=== PATIENT | male | born 2000 | race Caucasian/White ===

== ENCOUNTER 2018-03-23 19:41 | Emergency (ER) | payer OTHER ==
[~2018-03-23] VITALS: Ht 175.3 cm; Wt 68.0 kg
--- NOTE | 2018-03-23 19:45 | NUR ---
TO LOBBY , A/W BED, AMBULATORY, VSS, ERMD NOTED
[2018-03-23 19:48] VITALS: BP 134/69
--- NOTE | 2018-03-23 20:42 | NUR ---
PT WAITING IN LOBBY IN STABLE CONDITION
--- NOTE | 2018-03-23 21:05 | NUR ---
CALLED PT, NOT IN LOBBY OR OUTSIDE ER LOBBY
--- NOTE | 2018-03-23 21:17 | NUR ---
CALLED PT, NOT IN LOBBY OR OUTSIDE ER LOBBY
--- NOTE | 2018-03-23 21:18 | NUR ---
PATIENT LEFT WITHOUT BEING SEEN BY DR. REYNA. NO FURTHER CARE PROVIDED FOR PATIENT.
== END 2018-03-23 21:18 | disposition left against medical advice (07) ==
LOC: MED 19:41
DX: N48.89 Other specified disorders of penis (principal); Z53.21 Procedure and treatment not carried out due to patient leaving prior to being seen by health care provider

== ENCOUNTER 2018-03-24 16:47 | Emergency (ER) | payer OTHER ==
[~2018-03-24] VITALS: Ht 172.7 cm; Wt 68.0 kg
[2018-03-24 16:56] VITALS: BP 103/52
--- NOTE | 2018-03-24 17:00 | NUR ---
18/M BIB MOM C/O rlq pain radiating to rt groin, dysuria x 2 days. DENIES N/V/D; SKIN IS PINK/WARM/DRY; AAOX4 WITH EVEN AND STEADY GAIT; LUNGS CLEAR BL; HR EVEN AND REGULAR; PT DENIES ANY FEVER, CP, SOB, OR COUGH AT THIS TIME; PATIENT STATES PAIN OF 7/10 AT THIS TIME; VSS; PATIENT POSITIONED FOR COMFORT; HOB ELEVATED; BEDRAILS UP X2; BED DOWN. ER MD MADE AWARE OF PT STATUS.
--- NOTE | 2018-03-24 17:47 | NUR ---
US AT BEDSIDE.
[2018-03-24 18:15] VITALS: BP 105/49
--- NOTE | 2018-03-24 18:15 | NUR ---
Patient discharged with v/s stable. Written and verbal after care instructions given and explained. Patient verbalized understanding. Ambulatory with steady gait. All questions addressed prior to discharge. Advised to follow up with PMD.
== END 2018-03-24 18:15 | disposition home or self-care (01) ==
LOC: MED 16:47
DX: R10.31 Right lower quadrant pain (principal); F12.10 Cannabis abuse, uncomplicated
CPT/HCPCS: 76705; 81002; 99284; Q0092

== ENCOUNTER 2018-05-29 13:08 | Emergency (ER) | payer OTHER ==
[~2018-05-29] VITALS: Ht 172.7 cm; Wt 68.0 kg
[2018-05-29 13:25] VITALS: BP 94/41
[2018-05-29 15:20] LABS: APPEARANCE,URINE CLEAR (CLEAR); BILIRUBIN,URINE NEGATIVE (NEGATIVE); BLOOD, URINE NEGATIVE (NEGATIVE); COLOR,URINE YELLOW (YELLOW); LEUKOCYTE ESTERASE ,URINE NEGATIVE (NEGATIVE); NITRITE, URINE NEGATIVE (NEGATIVE); UGLUCOSE NEGATIVE (NEGATIVE)
[2018-05-29 16:11] VITALS: BP 101/56
[2018-05-31 06:14] LABS: CHLAMYDIA TRACHOMATIS AMP DNA Negative (Negative)
== END 2018-05-29 16:11 | disposition home or self-care (01) ==
LOC: MED 13:08
DX: N34.2 Other urethritis (principal)
CPT/HCPCS: 36415; 81003; 87491; 99283

== ENCOUNTER 2018-07-22 12:10 | Emergency (ER) | payer OTHER ==
[~2018-07-22] VITALS: Ht 172.7 cm; Wt 68.5 kg
[2018-07-22 12:19] VITALS: BP 83/45
[2018-07-22] MEDS ORDERED: ACETAMINOPHEN EXTRA STRENGTH 500 MG TAB PO ONE (13:40)
[2018-07-22] MEDS ORDERED: ONDANSETRON 4 MG ODT PO ONE (14:45)
[2018-07-22 14:59] VITALS: BP 109/59
== END 2018-07-22 14:59 | disposition home or self-care (01) ==
LOC: MED 12:10
DX: B34.9 Viral infection, unspecified (principal); K21.9 Gastro-esophageal reflux disease without esophagitis
CPT/HCPCS: 36415; 87804; 99283; Q0162

== ENCOUNTER 2018-12-15 06:07 | Emergency (ER) | payer OTHER ==
[~2018-12-15] VITALS: Ht 172.7 cm; Wt 70.3 kg
[2018-12-15 06:12] VITALS: BP 122/76
--- NOTE | 2018-12-15 06:12 | NUR ---
TO BED # 03 AMBULATORY
--- NOTE | 2018-12-15 06:20 | NUR ---
PT BIB MOTHER C/O UPPER ABD PAIN. PT STATES SUDDEN ONSET OF EPIGASTRIC PAIN X2 HOURS. PT STATES NAUSEA AND VOMITING 3-4 TIMES IN THE LAST HOURS; PT REPORTED THIN, CLEAR, BROWNISH EMESIS. +TENDERNESS TO UPPER MEDIAL ABD; NO REDNESS OR SWELLING NOTED. LBM: X20 MINS AGO; DIARRHEA. PT STATES 10/10 CRAMPING PAIN. --SKIN WARM, DRY AND INTACT. +MOIST MUCOUS MEMBRANES. PT ACTING APPROPRIATLY. BREATHING EQUAL AND UNLABORED. BOWEL SOUNDS ACTIVE X4 QUAD. PT IN GOWN, IN BED; BED IN LOWER LOCKED POSITION. PENDING ER MD JALLOH. PMH: DENIES RX: DENIES
[2018-12-15 06:38] LABS: BASOPHILS % (AUTO) 0.2 % (0.0-2.0); EOSINOPHILS # (AUTO) 0.1 K/uL (0-0.4); EOSINOPHILS % (AUTO) 0.7 % (0.0-4.0); HEMATOCRIT 50.4 % (36-52); HEMOGLOBIN 17.4 g/dL (12.0-18.0); LYMPHOCYTES # (AUTO) 0.8 K/uL (2.0-11.5); LYMPHOCYTES % (AUTO) 5.8 % (20.5-51.1); MEAN CORPUSCULAR HEMOGLOBIN 31 pg (27-31); MEAN CORPUSCULAR HGB CONC 35 g/dL (33-37); MEAN CORPUSCULAR VOLUME 88.3 fL (80-94); MONOCYTES # (AUTO) 0.7 K/uL (0.8-1.0); MONOCYTES % (AUTO) 4.7 % (1.7-9.3); NEUTROPHILS # (AUTO) 12.3 K/uL (1.8-7.7); NEUTROPHILS % (AUTO) 88.6 % (42.2-75.2); PLATELET COUNT (AUTO) 221 K/uL (140-450); RED BLOOD CELL COUNT(AUTO) 5.71 MIL/uL (4.20-6.10); RED CELL DISTRIBUTION WIDTH 12.8 % (11.6-13.7); WHITE BLOOD COUNT (AUTO) 13.9 K/uL (4.5-11.0)
--- NOTE | 2018-12-15 06:40 | NUR ---
LAB DRAWN BY
[2018-12-15 06:48] LABS: ANION GAP 13.4 (8-16); CARBON DIOXIDE 27.7 mmol/L (21-32); CREATININE 0.9 mg/dL (0.7-1.3); POTASSIUM 4.1 mmol/L (3.5-5.1)
[2018-12-15] MEDS ORDERED: NACL 0.9% 1,000 ML IV ONE (06:50)
--- NOTE | 2018-12-15 06:50 | NUR ---
Otto bess in [facility] - 12/15/18 at 0655 by [facility] WALKED DOWN TO LAB BY
[2018-12-15 06:54] LABS: ALBUMIN 4.2 g/dL (3.4-5.0); TOTAL BILIRUBIN 1.3 mg/dL (0.0-1.0)
--- NOTE | 2018-12-15 07:02 | NUR ---
PT AMBULATED W/STEADY GATE TO BR AT THIS TIME.
--- NOTE | 2018-12-15 07:15 | NUR ---
CHECKED ON PT IN BR, PT STATES "YEAH, IM OK".
--- NOTE | 2018-12-15 07:20 | NUR ---
PT BACK IN BED. SAFETY PRECAUTION IN PLACE. WILL CONTINUE TO MONITOR.
--- NOTE | 2018-12-15 07:28 | NUR ---
DR. HWANG AT BEDSIDE FOR EVALUATION.
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
--- NOTE | 2018-12-15 07:32 | NUR ---
Pt report given to PRINCE Santiago. Transfer of care at this time.
[2018-12-15] MEDS ORDERED: DIPHENOXYLATE /ATROPINE 2.5 MG TAB PO ONE (07:35)
[2018-12-15 08:02] VITALS: BP 122/62
--- NOTE | 2018-12-15 08:02 | NUR ---
Patient discharged with v/s stable. Written and verbal after care instructions given and explained. Patient alert, oriented and verbalized understanding of instructions. Ambulatory with steady gait. All questions addressed prior to discharge. ID band removed. Patient advised to follow up with PMD. Rx of ZOFRAN, LOMOTIL & PEPCID given. Patient educated on indication of medication including possible reaction and side effects. Opportunity to ask questions provided and answered.
== END 2018-12-15 08:02 | disposition home or self-care (01) ==
LOC: MED 06:07
DX: R11.2 Nausea with vomiting, unspecified (principal); R19.7 Diarrhea, unspecified; K21.9 Gastro-esophageal reflux disease without esophagitis
CPT/HCPCS: 36415; 80053; 83690; 85025; 96360; 99283; J7030

== ENCOUNTER 2019-02-03 06:19 | Day surgery (SDC) | payer OTHER ==
[~2019-02-03] VITALS: Ht 172.7 cm; Wt 70.3 kg
[2019-02-03] MEDS ORDERED: ONDANSETRON 4 MG/2 ML VIAL ONE (07:32)
[2019-02-03] MEDS ORDERED: DEXAMETHASONE 4 MG/ML VIAL ONE (07:32)
[2019-02-03] MEDS ORDERED: DESFLURANE 240 ML BTL INH ONE (07:32)
[2019-02-03] MEDS ORDERED: KETOROLAC 30 MG/ML VIAL ONE (07:32)
[2019-02-03] MEDS ORDERED: BUPIVACAINE-MPF/EPI 0.25% 30 ML VIAL INJ ONE (07:33)
[2019-02-03] MEDS ORDERED: fentaNYL 0.05 MG/ML VIAL ONE (07:45)
[2019-02-03] MEDS ORDERED: HYDROcodone/APAP 5/325 MG 1 TAB TAB PO PRN (08:30)
[2019-02-03] MEDS ORDERED: ONDANSETRON 4 MG/2 ML VIAL IV PRN (08:30)
[2019-02-03] MEDS ORDERED: MORPHINE SULFATE 2 MG/ML SYR IVP PRN (08:30)
[2019-02-03] MEDS ORDERED: HYDROmorphone 1 MG/ML AMP IVP PRN (08:30)
[2019-02-03] MEDS ORDERED: MORPHINE SULFATE 4 MG/ML SYR IV PRN (08:30)
== END 2019-02-03 09:35 | disposition home or self-care (01) ==
LOC: MMU 06:19 → MDS 06:19
PROVIDERS: ATTEND Surgery
DX: S30.850A Superficial foreign body of lower back and pelvis, initial encounter (principal); X58.XXXA Exposure to other specified factors, initial encounter; Y93.89 Activity, other specified; Y92.89 Other specified places as the place of occurrence of the external cause; Y99.8 Other external cause status; Z18.89 Other specified retained foreign body fragments; Z98.890 Other specified postprocedural states
CPT/HCPCS: 10120; 71045; 88300; J0690; J1100; J1885; J2405; J3010; J3490; J7060; J7120

== ENCOUNTER 2019-07-23 21:59 | Emergency (ER) | payer OTHER ==
[~2019-07-23] VITALS: Ht 172.7 cm; Wt 72.6 kg
[2019-07-23 22:05] VITALS: BP 130/81
--- NOTE | 2019-07-23 22:08 | NUR ---
TO LOBBY A/W BED AMBULATORY
--- NOTE | 2019-07-23 23:27 | NUR ---
PT AMBULATED TO BED 06
--- NOTE | 2019-07-23 23:48 | NUR ---
ASSESSMENT COMPLETE AT THIS TIME. PATIENT SITTING UP IN BED, MOTHER AT BEDSIDE. SIDE RAIL UP ON ONE SIDE. BED IN LOW LOCKED POSITION.
--- NOTE | 2019-07-24 00:07 | NUR ---
Dr. Dai examining patient.
[2019-07-24 00:17] VITALS: BP 125/78
== END 2019-07-24 00:17 | disposition home or self-care (01) ==
LOC: MED 21:59
DX: R20.0 Anesthesia of skin (principal)
CPT/HCPCS: 99282

== ENCOUNTER 2020-05-08 19:26 | Emergency (ER) | payer OTHER ==
[~2020-05-08] VITALS: Ht 172.7 cm; Wt 74.8 kg
[2020-05-08 19:58] VITALS: BP 131/55
[2020-05-08] MEDS ORDERED: KETOROLAC 60 MG/2 ML VIAL IM ONE (20:20)
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
--- NOTE | 2020-05-08 20:29 | NUR ---
PT TO X-RAY AT THIS TIME
[2020-05-08 21:10] VITALS: BP 113/64
--- NOTE | 2020-05-08 21:11 | NUR ---
Patient discharged with v/s stable. Written and verbal after care instructions given and explained. Patient alert, oriented and verbalized understanding of instructions. Ambulatory with steady gait. All questions addressed prior to discharge. ID band removed. Patient advised to follow up with PMD. Rx of ROBAXIN AND NAPROSYN given. Patient educated on indication of medication including possible reaction and side effects. Opportunity to ask questions provided and answered.
== END 2020-05-08 21:11 | disposition home or self-care (01) ==
LOC: MED 19:26
DX: M54.2 Cervicalgia (principal); K21.9 Gastro-esophageal reflux disease without esophagitis; M25.512 Pain in left shoulder; V49.59XA Passenger injured in collision with other motor vehicles in traffic accident, initial encounter; Y93.89 Activity, other specified; Y92.89 Other specified places as the place of occurrence of the external cause; Y99.8 Other external cause status
CPT/HCPCS: 72050; 96372; 99283; J1885

== ENCOUNTER 2020-09-19 02:45 | Emergency (ER) | payer OTHER ==
[~2020-09-19] VITALS: Ht 172.7 cm; Wt 77.1 kg
[2020-09-19 02:51] VITALS: BP 127/79
--- NOTE | 2020-09-19 02:51 | NUR ---
TO BED AMBULATORY
--- NOTE | 2020-09-19 03:05 | NUR ---
RECEIVED IN BED 7 FROM TRIAGE WITH C/O "MY HEART IS RACING" PT IS RESTLESS AND SLIGHTLY ANXIOUS. DENIES PAIN AT THIS TIME. RESPIRATIONS ARE REGULAR AND UNLABORED
[2020-09-19 03:39] VITALS: BP 127/79
--- NOTE | 2020-09-19 03:39 | NUR ---
PATIENT ELOPED FROM FACILITY. DISCHARGE INSTRUCTIONS NOT GIVEN TO PATIENT. DR. FRAZIER NOTIFIED.
== END 2020-09-19 03:39 | disposition left against medical advice (07) ==
LOC: MED 02:45
DX: R35.0 Frequency of micturition (principal); R00.2 Palpitations; K21.9 Gastro-esophageal reflux disease without esophagitis; Z87.448 Personal history of other diseases of urinary system
CPT/HCPCS: 81002; 99283

== ENCOUNTER 2020-12-16 00:29 | Emergency (ER) | payer OTHER ==
--- NOTE | 2020-12-16 00:55 | NUR ---
CALLED PTS NAME IN THE LOBBY, NO RESPONSE.
--- NOTE | 2020-12-16 01:03 | NUR ---
CALLED PTS NAME IN THE LOBBY A 2ND TIME, NO RESPONSE.
--- NOTE | 2020-12-16 01:13 | NUR ---
CALLED PT THIRD TIME IN LOBBY. NO RESPONSE. PT LWBS.
== END 2020-12-16 01:18 | disposition left against medical advice (07) ==
LOC: MED 00:29
DX: R14.0 Abdominal distension (gaseous) (principal); Z53.21 Procedure and treatment not carried out due to patient leaving prior to being seen by health care provider

== ENCOUNTER 2021-06-17 02:57 | Emergency (ER) | payer OTHER ==
[~2021-06-17] VITALS: Ht 170.2 cm; Wt 76.2 kg
[2021-06-17 03:02] VITALS: BP 122/69
[2021-06-17] MEDS ORDERED: LORazepam 0.5 MG TAB PO ONE (03:05)
--- NOTE | 2021-06-17 03:06 | NUR ---
patient to bed 4 ambulatory
--- NOTE | 2021-06-17 03:20 | NUR ---
PT PRESENTS TO THE ED WITH C/O FACIAL NUMBNESS. NO ASYMMETRY NOTED. STRENGTH EQUAL ON BILATERAL EXTREMITIES. PT DENIES TAKING ANY MEDICATION. NO S/S OF DISTRESS NOTED AT THIS TIME
[2021-06-17 03:42] VITALS: BP 122/65
== END 2021-06-17 03:42 | disposition home or self-care (01) ==
LOC: MED 02:57
DX: M62.838 Other muscle spasm (principal); K21.9 Gastro-esophageal reflux disease without esophagitis
CPT/HCPCS: 99283

== ENCOUNTER 2021-08-05 09:58 | Emergency (ER) | payer OTHER ==
[~2021-08-05] VITALS: Ht 172.7 cm; Wt 75.7 kg
[2021-08-05 10:30] VITALS: BP 116/72
--- NOTE | 2021-08-05 10:32 | NUR ---
PT TO LOBBY.
--- NOTE | 2021-08-05 11:33 | NUR ---
PT CALLED IN LOBBY BY DR ANEN. NO ANSWER. PT CALLED IN PHONE STATED HE "TOOK OFF" AND IS NOT RETURNING. AWARE. Addendum: 08/05/21 at 1133 by [email or web address] KATHLEEN
== END 2021-08-05 11:33 | disposition left against medical advice (07) ==
LOC: MED 09:58
DX: R10.13 Epigastric pain (principal); Z53.21 Procedure and treatment not carried out due to patient leaving prior to being seen by health care provider

== ENCOUNTER 2021-12-04 22:15 | Emergency (ER) | payer OTHER ==
[~2021-12-04] VITALS: Ht 165.1 cm; Wt 73.5 kg
[2021-12-04 22:27] VITALS: BP 126/65
--- NOTE | 2021-12-04 22:30 | NUR ---
PATIENT WAITING FOR MSE IN CAR.
[2021-12-04] MEDS ORDERED: DEXAMETHASONE 10 MG/ML VIAL PO ONE (22:55)
[2021-12-05] MEDS ORDERED: LIDO100S PO (00:09)
[2021-12-05] MEDS ORDERED: MAG-27 PO (00:09)
[2021-12-05 00:20] VITALS: BP 122/87
--- NOTE | 2021-12-05 00:20 | NUR ---
Patient discharged with v/s stable. Written and verbal after care instructions given and explained. Patient alert, oriented and verbalized understanding of instructions. Ambulatory with steady gait. All questions addressed prior to discharge. ID band removed. Patient advised to follow up with PMD. Rx of MYLANTA, LIDOCAINE given. Patient educated on indication of medication including possible reaction and side effects. Opportunity to ask questions provided and answered.
== END 2021-12-05 00:20 | disposition home or self-care (01) ==
LOC: MED 22:15
DX: J02.9 Acute pharyngitis, unspecified (principal); R06.02 Shortness of breath; K21.9 Gastro-esophageal reflux disease without esophagitis; Z79.899 Other long term (current) drug therapy
CPT/HCPCS: 70360; 87081; 99284; J1100

== ENCOUNTER 2022-01-02 15:13 | Emergency (ER) | payer OTHER ==
[~2022-01-02] VITALS: Ht 172.7 cm; Wt 71.2 kg
[~2022-01-02 15:13] MED LIST: LIDO100S PO; MAG-27 PO
[2022-01-02 15:22] VITALS: BP 106/62
[2022-01-02] MEDS ORDERED: DEXAMETHASONE 4 MG/ML VIAL PO ONE (16:00)
[2022-01-02] MEDS ORDERED: DEXAMETHASONE 4 MG/ML VIAL ONE ×2 (16:15→16:16)
--- NOTE | 2022-01-02 16:26 | NUR ---
21YO MALE PT C/O SORE THROAT. PT STATES "TINGLING FEELING" X2 WEEKS WITH MILD ACHES. PT DENIES D/V/V OR FEVER. PT AAOX4 , ALL VITALS WITHIN NORMAL RANGE . ALL NEEDS MET AT THIS TIME NKA HX: GASTRITIS
--- NOTE | 2022-01-02 16:40 | NUR ---
21/M C/O HEADACHE AND SORE THROAT X2 WEEKS, REPORTS FEELING "TINGLING" GOING DOWN HIS ARMS. DENIES FEVERS, CP, SOB OR RECENT SICK CONTACTS.
[2022-01-02 16:50] VITALS: BP 106/62
--- NOTE | 2022-01-02 16:50 | NUR ---
Patient discharged with v/s stable. Written and verbal after care instructions ABOUT PHARYNGITIS given and explained. Patient verbalized understanding. Ambulatory with steady gait. All questions addressed prior to discharge. Advised to follow up with PMD.
== END 2022-01-02 16:50 | disposition home or self-care (01) ==
LOC: MED 15:13
DX: J02.9 Acute pharyngitis, unspecified (principal); R20.2 Paresthesia of skin; K21.9 Gastro-esophageal reflux disease without esophagitis; Z79.899 Other long term (current) drug therapy
CPT/HCPCS: 99283; J1100

== ENCOUNTER 2023-08-26 20:43 | Emergency (ER) | payer OTHER ==
[~2023-08-26] VITALS: Ht 172.7 cm; Wt 77.1 kg
[2023-08-26 21:48] VITALS: BP 116/68; PULSE 66; RESP 18; TEMP 98.5; O2SAT 95
[2023-08-26 22:44] LABS: FLU A ANTIGEN negative (NEGATIVE); FLU B ANTIGEN NEGATIVE (NEGATIVE)
[2023-08-26] MEDS ORDERED: ALUMINUM HYD/MAG/SIMETHICONE 30 ML UDC ONE (22:57)
[2023-08-26] MEDS ORDERED: DICYCLOMINE HCL LIQUID 10 MG/5 ML UDC ONE (22:57)
[2023-08-26] MEDS ORDERED: SUCR1TAB35 PO (23:01)
[2023-08-26] MEDS ORDERED: AMOX500C25 PO (23:01)
[2023-08-26] MEDS ORDERED: MENT7.6L13 PO (23:01)
[2023-08-26] MEDS ORDERED: FAMO-90 PO (23:01)
[2023-08-26] MEDS ORDERED: ONDA-188 PO (23:02)
[2023-08-26] MEDS: DEXAMETHASONE 4 MG/ML VIAL PO ONE (23:03)
[2023-08-26] MEDS: AMOXICILLIN 500 MG CAP PO ONE (23:03)
[2023-08-26] MEDS: DICYCLOMINE HCL LIQUID 20 MG, ALUMINUM HYD/MAG/SIMETHICONE 30 ML, LIDOCAINE VISCOUS 2% ... PO ONE ×3 (23:06)
== END 2023-08-26 23:19 | disposition home or self-care (01) ==
LOC: MED 20:43
DX: J02.8 Acute pharyngitis due to other specified organisms (principal); B96.89 Other specified bacterial agents as the cause of diseases classified elsewhere; K29.70 Gastritis, unspecified, without bleeding; Z20.822 Contact with and (suspected) exposure to COVID-19; K21.9 Gastro-esophageal reflux disease without esophagitis; Z79.899 Other long term (current) drug therapy; Z79.2 Long term (current) use of antibiotics
CPT/HCPCS: 87081; 87426; 87804; 99284; J1100

== ENCOUNTER 2024-02-04 19:17 | Emergency (ER) | payer OTHER ==
[~2024-02-04] VITALS: Ht 172.7 cm; Wt 72.6 kg
[~2024-02-04 19:17] MED LIST changes: +AMOX500C25 PO; +FAMO-90 PO; +MENT7.6L13 PO; +ONDA-188 PO; +SUCR-3 PO
[2024-02-04 19:20] VITALS: BP 114/84; PULSE 67; RESP 17; TEMP 97.8; O2SAT 97
[2024-02-04 20:11] LABS: APPEARANCE,URINE CLEAR (CLEAR); BILIRUBIN,URINE NEGATIVE (NEGATIVE); BLOOD, URINE NEGATIVE (NEGATIVE); COLOR,URINE YELLOW (YELLOW); LEUKOCYTE ESTERASE ,URINE NEGATIVE (NEGATIVE); NITRITE, URINE NEGATIVE (NEGATIVE); PROTEIN,URINE NEGATIVE (NEGATIVE); UGLUCOSE NEGATIVE (NEGATIVE)
[2024-02-04] MEDS ORDERED: NAPR-337 PO (20:24)
== END 2024-02-04 20:30 | disposition home or self-care (01) ==
LOC: MED 19:17
DX: S33.5XXA Sprain of ligaments of lumbar spine, initial encounter (principal); K21.9 Gastro-esophageal reflux disease without esophagitis; Z79.1 Long term (current) use of non-steroidal anti-inflammatories (NSAID); Z79.2 Long term (current) use of antibiotics; Z79.899 Other long term (current) drug therapy; X58.XXXA Exposure to other specified factors, initial encounter; Y93.89 Activity, other specified; Y92.89 Other specified places as the place of occurrence of the external cause; Y99.8 Other external cause status
CPT/HCPCS: 81003; 99283